=== PATIENT | male | born 1960 | race Caucasian/White ===

== ENCOUNTER → 2016-04-08 | Outpatient (CLI) | payer BC ==
--- NOTE | 2016-04-09 06:34 | PAP/PSG TECHNICIAN REPORT ---
[facility] Tear Down Man Polysomnogram Report Study name: None Report date: 04/09/2016 Study date: 04/08/2016 Referring Physician: DR. VASQUEZ Name: SHILPA HAND Interpreting Physician: Mark Jacobs D.O. Date of : 1960 Tear Down Man: Eileen James RPSGT. Sex: Male Age: 55 Study Type: PSG Weight: 217 lbs 16.5 in Height: 55 years, Height 5' 10" Neck Circum: BMI: 31.13 Medications: LIPITOR Patient History 55 yr-old male here for a baseline/split study. He has a history of loud snoring, witnessed apneas, excessive daytime sleepiness, and restlessness of his legs. His [place] scale is 9. CPAP will be initiated when the AHI is above 10 (per H&P). The test was started on room air. ETCO2 testing was not utilized during this study. Room 3 Parameters Monitored NPSG: E1-M2, E2-M1, Fp1-M2, Fp2-M1, F3-M2, F4-M2, F4-M1, C3-M2, C4-M2, C4-M1, O1-M2, O2-M2, O2-M1, T3-M2, T4-M1, P3-M2, P4-M1, CHIN1, CHIN2, HR, EKG, Legs, PFLOW, SNOR, FLOW, CFLOW, Tidal Volume, THOR, ABDO, SpO2, PLTH, CPRESS, ETCO2 Wave, ETCO2, pH Sleep Architecture Sleep Stages Time at Lights Off 10:43:40 PM STAGES Time (min.) TST (%) Time at Lights On 5:29:40 AM Wake 139.0 -- Total Recording Time (TRT) 406.00 min. N1 85.0 32 Total Sleep Period (TSP) 392.5 min. N2 121.5 46 Total Sleep Time (TST) 267.0min. N3 0.0 0 Awake Time 139.0 min. REM 60.5 23 Wake after Sleep Onset 125.5 min. Sleep Efficiency (SE) 66 % Sleep Onset Latency (GAIL) 13.5 min. Number of Stage 1 Shifts None Awakenings 27 Stage Changes 144 Number of REM periods 5 REM 60.5 23 REM Latency 219.5 min. NREM 206.5 77 Body Position Analysis Supine Right Left Side Prone Vertical Total Sleep Time (min.) 78.2 116.5 111.7 228.21 0.0 0.0 Total Sleep Time (%) 15% 44% 42% 85 0% N/A% Total Sleep Time REM (min.) 0.0 39.0 21.5 None 0.0 0.0 Total Sleep Time NREM (min.) 38.8 77.5 90.2 None 0.0 0.0 Intermittent Wake (min.) 39.4 55.5 44.1 None 0.0 0.0 Total Sleep Period (%) 16% None None None None None Arousals Myoclonus (PLM) * Events Count Index Events Count Index Spontaneous 33 7 Events Awake (PLMW) 108 46.6 Respiratory 73 17.5 Events Asleep w/ Arousal (PLMA) 32 7.2 PLM 32 7 Events Asleep w/o Arousal (PLMS) 112 25.2 Snoring 43 10 Total Asleep 144 32.4 Total 180 40 Total 252 37 Respiratory Analysis * CA OA MA CH H RERA Total Count 6 19 1 0 96 13 122 Index 1.3 4.3 0.2 0 21.6 3 30.3 Mean Duration 13.0 24.3 28.4 0.00 19.5 17.3 19.7 Longest Duration 16.0 50.8 28.4 0.00 28.4 20.2 50.8 Respiratory Event Summary Total Supine ~Supine Right Left Prone REM NREM Apneas Count 26 20 6 5 1 N/A 4 22 Index 5.8 31 2 2.6 0.5 N/A 4 6 Hypopneas (4% Desat) Count 96 33 63 39 24 N/A 19 77 Index 21.6 51.0 17 20.1 12.9 N/A 18.8 22.4 Apneas & All Hypopneas Count 122 53 69 44 25 N/A 23 99 Index 27.4 82 18 23 13 N/A 22.8 28.8 Respiratory Events (Security Alarm Technician+All Hyp+RERA) Count 122 54 81 51 30 N/A 23 99 Index 30.3 84 21 26.3 16.1 N/A 22.8 32.5 Respiratory Related Arousal Count 73 54 37 23 14 N/A 3 75 Index 17.5 63 10 12 8 N/A 3 22 Snoring Analysis Supine Right Left Prone REM NREM Total Snore duration 59.6 min Snores count 93 758 1,088 N/A 486 1,453 1,939 Snore mean duration 1.8 Sec Snores index 144 390 584 N/A 482.0 422.2 435.7 TST with snoring (%) 22.3% Desaturation Event Summary: Minimum %SpO2 Event Count Mean/Min/Max Duration(sec.) Desaturation Index % Time In Bed > 90 179 27.8 / 6.5 / 60.0 34.6 77.1 86 - 90 8 28.1 / 7.0 / 54.0 5.5 21.7 81 - 85 0 N/A 0.0 1.2 76 - 80 0 N/A 0.0 0.0 71 - 75 0 N/A 0.0 0.0 66 - 70 0 N/A 0.0 0.0 61 - 65 0 N/A 0.0 0.0 56 - 60 0 N/A 0.0 0.0 51 - 55 0 N/A 0.0 0.0 < 50 0 N/A 0.0 0.0 Total REM NREM Awake <50% 0.0 min. 0.0 min. 0.0 min. 0.0 min. 51 - 60% 0.0 min. 0.0 min. 0.0 min. 0.0 min. 61 - 70% 0.0 min. 0.0 min. 0.0 min. 0.0 min. 71 - 80% 0.1 min. 0.0 min. 0.0 min. 0.1 min. 81 - 90% 92.2 min. 18.4 min. 60.3 min. 13.4 min. 91 - 100% 310.3 min. 40.3 min. 145.8 min. 124.2 min. Average 92 92 91 93 Minimum SpO2 80 83 82 80 Desaturation Event Index 26.7 39.7 30.5 16.0 # Desat. Events below 89% 53 12 32 9 Time(%) with Saturation below 89% 7.4 1.3 5.5 0.6 Time(min.) with Saturation below 89% 29.6 5.1 22.1 2.4 Time (mins) REM (mins) NREM (mins) % of TST SpO2 Below 90% 108 26 N82 18.1 SpO2 Below 88% 20 0 0 6 Heart Rate Analysis Min (bpm) Max (bpm) Average (bpm) Awake 52 127 65 NREM 52 127 64 REM 55 214 69 Overall 52 214 65 Supplemental O2 Values Minimum O2 level: None Value Start Time End Time Tear Down Man Comments Mr. Hand slept in the right, left, and supine positions. No cardiac arrhythmias were noted. PLMs were noted. No bruxism noted. Snoring was noted and scored as a 3 on a scale of 1 through 5. (0=no snoring, 5=snoring loud enough to be heard through a closed door or down the [address] way). He did not meet specific Split-Night criteria during the diagnostic portion of this study. His AHI was high enough (per the H&P); however, he did not have enough sleep time to allow for CPAP treatment. He did not wake up to use the restroom during the night. Mr. Hand stated that he slept a little worse than usual. The final report will be interpreted and signed by a sleep physician. The completed physician report will then be placed in the patient medical record. Therapy (cm H2O) 0 TIB (min.) 406.0 TST (min.) 267.0 Sleep Onset (min.) 13.5 REM Onset From Sleep (min.) 219.5 Sleep Efficiency % 66 Wakefulness (%) 34 Wakefulness (min.) 139.0 NREM 1 (%) 32 NREM 1 (min.) 85.0 NREM 2 (%) 46 NREM 2 (min.) 121.5 NREM 3 (%) 0 NREM 3 (min.) 0.0 REM (%) 23 REM (min.) 60.5 # Arousals 180 Arousal Index 40 # Snore 1,939 Snore Index 435.7 AHI 27.4 AHI Supine 82 AHI Non-Supine 18 NREM AHI 28.8 REM AHI 22.8 RDI 30.3 # Obstructive Apnea 19 # Central Apnea 6 # Mixed Apnea 1 # Hypopneas 96 RERAs 13 Total Respiratory Events 135 Time Below SpO2 89% (min.) 27.2 Mean NREM SpO2 (%) 91 Mean REM SpO2 (%) 92 Mean Sleep SpO2 (%) 91 Min NREM SpO2 (%) 82 Min REM SpO2 (%) 83 Position Supine (min.) 78.2 Position Non-supine (min.) 228.2 LM Index Sleep 32.4 LM Index NREM 32.0 LM Index REM 33.7 Mean Heart Rate (bpm) 65 Min Heart Rate (bpm) 52
--- NOTE | 2016-04-11 08:29 | POLYSOMNOGRAPH REPORT ---
DATE: 04/08/2016. REFERRING PHYSICIAN: Dr. Perez. CLINICAL DATA: The patient is a 55-year-old male with a BMI of 31.13. He is referred for a sleep study by Dr. Perez. His history is that of snoring, observed apneas, excessive daytime somnolence, and restless legs. His [place] Sleepiness Score is 9 out of a possible 24. This was a diagnostic study. SLEEP ARCHITECTURE: The total sleep period was 392.5 minutes. The total sleep time was 267.0 minutes. Sleep efficiency was moderately reduced to 66%. Wake after sleep onset was increased at 125.5 minutes. The sleep latency was 13.5 minutes. The REM latency was prolonged to 219.5 minutes. Sleep consisted of stage N1 32%, stage N2 46%, stage N3 0%, REM sleep 23%. AROUSAL DATA: The patient had a total of 180 arousals including 33 spontaneous arousals, 73 respiratory arousals, 32 PLM arousals, and 43 snoring arousals. The arousal index was elevated at 40 per hour. PLM DATA: The patient had a total of 144 periodic limb movements of sleep for a PLM index of 32.4 events per hour. There were 32 arousals related to limb movements for an index of 7.2. EKG: The cardiac rhythm was normal sinus. The slowest heart rate was 52 beats per minute. The mean heart rate was 65 beats per minute. RESPIRATORY DATA: The patient showed evidence of moderate sleep apnea with 6 central apneas, 19 obstructive apneas, 1 mixed apneic, and 96 hypopneas. The apnea hypopnea index was moderately elevated at 27.4 events per hour. The longest apnea was 50.8 seconds and the longest hypopnea was 28.4 seconds. There were 13 RERAs. OXIMETRY DATA: The patient had modest hypoxemia. The lowest saturation was 80%. This was very transient. He had a total of 20 minutes with saturations less than 88%. The average saturation was 92%. OUTDOOR ILLUMINATING ENGINEER COMMENTS: Mr. Nolasco slept in the right, left, and supine positions. No cardiac arrhythmias were noted. PLMs were noted. Snoring was noted and scored as a 3 on a scale of 1 through 5. He did not meet specific split night criteria during the diagnostic portion of the study. His AHI was high enough, however he did not have enough sleep time to allow for CPAP treatment. IMPRESSIONS: 1. Obstructive sleep apnea -- moderate. 2. Periodic limb movement disorder. COMMENTS: The patient had moderate sleep apnea as noted. There was modest hypoxemia. The sleep efficiency was decreased. He had a moderate number of limb movements but with relatively few arousals. RECOMMENDATIONS: 1. It is advised that he be given a trial of nasal CPAP or BiPAP. 2. It is suggested that the patient initiate a weight reduction program in light of his elevation of body mass index of 31.13. 3. It is suggested that he avoid sleeping in the supine position. The apnea-hypopnea index during this study when he was supine was elevated at 82.
== END | disposition home or self-care (01) ==
LOC: C.NEUR 21:00
PROVIDERS: ATTEND Internal Medicine Pulmonary Disease
DX: G47.30 Sleep apnea, unspecified (principal)

== ENCOUNTER → 2016-05-22 | Outpatient (CLI) | payer BC ==
--- NOTE | 2016-05-23 05:44 | PAP/PSG TECHNICIAN REPORT ---
[facility] Employee Benefits Specialist Polysomnogram Report Study name: None Report date: 05/23/2016 Study date: 05/22/2016 Referring Physician: Gee Morton Pulmonary Name: YAZAN SHILPA MANISHA Interpreting Physician: Mark Jacobs D.O. Date of : 1960 Employee Benefits Specialist: HELENA Hurst. Sex: Male Age: 55 StudyType: PSG PAP Weight: 217 lbs Height: 55 years, Height 5' 10" Neck Circum:16.5inches BMI: 31.13 Medications: Lipitor Patient History Study started on room air with 4 cwp cpap in room #8. 55 yr old male year tonight for a new titration study. He had a diagnostic psg done here on 04/08/16 that had an AHI of 27.4. His ESS=9/24. Neck circ=16.5inches Parameters Monitored NPSG: E1-M2, E2-M1, Fp1-M2, Fp2-M1, F3-M2, F4-M2, F4-M1, C3-M2, C4-M2, C4-M1, O1-M2, O2-M2, O2-M1, T3-M2, T4-M1, P3-M2, P4-M1, CHIN1, CHIN2, HR, EKG, Legs, PFLOW, SNOR, FLOW, CFLOW, Tidal Volume, THOR, ABDO, SpO2, PLTH, CPRESS, ETCO2 Wave, ETCO2, pH Sleep Architecture Sleep Stages Time at Lights Off 9:53:50 PM STAGES Time (min.) TST (%) Time at Lights On 5:32:50 AM Wake 157.5 -- Total Recording Time (TRT) 459.00 min. N1 26.0 9 Total Sleep Period (TSP) 394.5 min. N2 136.5 45 Total Sleep Time (TST) 301.5min. N3 53.5 18 Awake Time 157.5 min. REM 85.5 28 Wake after Sleep Onset 93.0 min. Sleep Efficiency (SE) 66 % Sleep Onset Latency (GAIL) 64.5 min. Number of Stage 1 Shifts None Awakenings 18 Stage Changes 77 Number of REM periods 5 REM 85.5 28 REM Latency 72.5 min. NREM 216.0 72 Body Position Analysis Supine Right Left Side Prone Vertical Total Sleep Time (min.) 269.1 106.6 48.3 154.85 0.0 0.0 Total Sleep Time (%) 49% 35% 16% 51 0% N/A% Total Sleep Time REM (min.) 42.5 43.0 0.0 None 0.0 0.0 Total Sleep Time NREM (min.) 104.1 63.6 48.3 None 0.0 0.0 Intermittent Wake (min.) 122.5 21.0 14.0 None 0.0 0.0 Total Sleep Period (%) 52% None None None None None Arousals Myoclonus (PLM) * Events Count Index Events Count Index Spontaneous 6 1 Events Awake (PLMW) 113 43.0 Respiratory 21 4.4 Events Asleep w/ Arousal (PLMA) 27 5.4 PLM 27 5 Events Asleep w/o Arousal (PLMS) 70 13.9 Snoring 1 0 Total Asleep 97 19.3 Total 55 11 Total 210 27 Respiratory Analysis * CA OA MA CH H RERA Total Count 3 8 0 0 22 0 33 Index 0.6 1.6 0.0 0 4.4 0 6.6 Mean Duration 18.2 18.3 0.0 0.00 21.7 0.0 20.5 Longest Duration 21.2 23.4 0.0 0.00 0.0 0.0 55.6 Respiratory Event Summary Total Supine ~Supine Right Left Prone REM NREM Apneas Count 11 11 0 0 0 N/A 1 10 Index 2.2 5 0 0.0 0.0 N/A 1 3 Hypopneas (4% Desat) Count 22 19 3 2 1 N/A 0 22 Index 4.4 7.8 1 1.1 1.2 N/A 0.0 6.1 Apneas & All Hypopneas Count 33 30 3 2 1 N/A 1 32 Index 6.6 12 1 1 1 N/A 0.7 8.9 Respiratory Events (Project Management Professor+All Hyp+RERA) Count 33 30 3 2 1 N/A 1 32 Index 6.6 12 1 1.1 1.2 N/A 0.7 8.9 Respiratory Related Arousal Count 21 30 1 0 1 N/A 1 21 Index 4.4 9 0 0 1 N/A 1 6 Snoring Analysis Supine Right Left Prone REM NREM Total Snore duration 1.3 min Snores count 20 5 4 N/A 2 27 29 Snore mean duration 2.6 Sec Snores index 8 3 5 N/A 1.4 7.5 5.8 TST with snoring (%) 0.4% Desaturation Event Summary: Minimum %SpO2 Event Count Mean/Min/Max Duration(sec.) Desaturation Index % Time In Bed > 90 62 25.0 / 7.0 / 58.3 12.9 64.3 86 - 90 25 21.8 / 10.8 / 47.0 9.6 34.9 81 - 85 1 47.0 / 47.0 / 47.0 17.3 0.8 76 - 80 0 N/A 0.0 0.0 71 - 75 0 N/A 0.0 0.0 66 - 70 0 N/A 0.0 0.0 61 - 65 0 N/A 0.0 0.0 56 - 60 0 N/A 0.0 0.0 51 - 55 0 N/A 0.0 0.0 < 50 0 N/A 0.0 0.0 Total REM NREM Awake <50% 0.0 min. 0.0 min. 0.0 min. 0.0 min. 51 - 60% 0.0 min. 0.0 min. 0.0 min. 0.0 min. 61 - 70% 0.0 min. 0.0 min. 0.0 min. 0.0 min. 71 - 80% 0.0 min. 0.0 min. 0.0 min. 0.0 min. 81 - 90% 160.3 min. 26.5 min. 76.6 min. 57.2 min. 91 - 100% 289.3 min. 59.0 min. 137.8 min. 92.5 min. Average 91 91 91 91 Minimum SpO2 78 82 78 80 Desaturation Event Index 8.9 3.5 10.8 9.5 # Desat. Events below 89% 47 5 30 12 Time(%) with Saturation below 89% 9.5 1.8 3.4 4.3 Time(min.) with Saturation below 89% 42.5 8.2 15.1 19.2 Time (mins) REM (mins) NREM (mins) % of TST SpO2 Below 90% 43 5 N38 21.5 SpO2 Below 88% 12 0 0 2 Heart Rate Analysis Min (bpm) Max (bpm) Average (bpm) Awake 46 127 63 NREM 49 127 59 REM 55 77 65 Overall 49 127 61 Supplemental O2 Values Minimum O2 level: None Value Start Time End Time Employee Benefits Specialist Comments Mr. Nolasco slept in the right, left, supine and prone positions. No cardiac arrhythmia or PLM's noted. No bruxism noted. CPAP was initiated at +4 CMH2O and up-titrated to an optimal level of +8 CMH2O, which nearly eliminated all respiratory events and snoring. A Soft Edge Mirage FX nasal mask was used for the first part of the study and then switched to a medium Quattro Air full face mask (both by [employer] ) were used during titration. He awoke to use the restroom 1 time during the night. He stated that he slept better than last time. The final report will be interpreted and signed by a sleep physician. The completed physician report will then be placed in the patient medical record. Therapy Event: Therapy (cm H20) 4 6 7 8 Total Time at Pressure (min.) 128.7 28.2 75.0 227.1 TST at Pressure (min.) 53.2 25.7 72.0 150.6 # Periods 1 1 1 1 Sleep Onset (min.) 64.5 0.0 0.0 0.0 REM Onset (min.) N/A 8.3 67.6 2.1 Sleep Efficiency % 41 91 96 66 Wakefulness (%) 58.7 8.9 4.0 33.7 Wakefulness (min.) 75.5 2.5 3.0 76.5 NREM 1 (%) 3.9 19.5 7.2 4.5 NREM 1 (min.) 5.0 5.5 5.4 10.1 NREM 2 (%) 25.0 13.1 34.8 32.8 NREM 2 (min.) 32.2 3.7 26.1 74.5 NREM 3 (%) 12.4 0.0 50.0 0.0 NREM 3 (min.) 16.0 0.0 37.5 0.0 REM (%) 0.0 58.5 4.0 29.1 REM (min.) 0.0 16.5 3.0 66.0 # Arousals 18 14 14 9 Arousal Index 20.3 32.7 11.7 3.6 # Snore 7 3 9 10 Snore Index 7.9 7.0 7.5 4.0 AHI 5.6 28.0 6.7 3.2 AHI Supine 48.9 28.0 6.7 8.2 AHI Non-Supine 1.2 N/A N/A 1.1 NREM AHI 5.6 78.2 6.1 5.7 REM AHI N/A 0.0 20.0 0.0 RDI 5.6 28.0 6.7 3.2 # Obstructive 0 7 1 0 # Central Ap 0 0 0 3 # Mixed 0 0 0 0 # Hypopneas 5 5 7 5 RERAS 0 0 0 0 Total Respiratory Events 5 12 8 8 Time Below SpO2 89.00% (min.) 0.8 10.4 10.8 1.3 Mean NREM SpO2 (%) 92 91 89 92 Mean REM SpO2 (%) N/A 89 89 92 Mean Sleep SpO2 (%) 92 89 89 92 Min NREM SpO2 (%) 78 84 87 86 Min REM SpO2 (%) N/A 85 82 89 Position Supine (min.) 4.9 25.7 72.0 44.0 Position Non-supine (min.) 48.3 0.0 0.0 106.6 LM Index Sleep 46.3 56.0 17.5 4.4 LM Index NREM 46.3 104.3 17.4 6.4 LM Index REM N/A 29.1 20.0 1.8 Mean Heart Rate (bpm) 59 66 62 60 Min Heart Rate (bpm) 52 53 53 49
--- NOTE | 2016-05-24 13:25 | POLYSOMNOGRAPH REPORT ---
REFERRING PHYSICIAN: Dr. Gee Morton. PRIMARY CARE DOCTOR: Dr. Harjinder Perez. CLINICAL DATA: The patient is a 55-year-old male who has a BMI of 31.13. He is referred by Dr. Perez. Mr. Nolasco had a first night sleep study done on 04/09/2016. His complaints were snoring, observed apneas, and excessive daytime somnolence. His [place] score was 9 out of a possible 24. The apnea hypopnea index from the first night study was moderately elevated at 27.4 events per hour with oxygen saturations as low as 80%. He is referred back to the sleep disorder center for a CPAP titration study. SLEEP ARCHITECTURE: The total sleep period was 394.5 minutes. Total sleep time was 301.5 minutes. The sleep efficiency was moderately reduced to 66%. The sleep onset latency was prolonged to 64.5 minutes. Wake after sleep onset was also prolonged to 93 minutes. The REM latency was normal at 72.5 minutes. Sleep consisted of stage N1 9%, stage N2 45%, stage N3 18%, and REM sleep 28%. AROUSAL DATA: The patient had a total of 55 arousals including 6 spontaneous arousals, 21 respiratory arousals, 27 PLM arousals, and 1 snoring arousal. The arousal index was 11. PLM DATA: The patient had a total of 97 periodic limb movements of sleep for an index of 19.3. Twenty seven of these resulted in arousals for a PLM arousal index of 5.4. EKG: The underlying cardiac rhythm was normal sinus. The minimum heart rate was 49 and the maximum recorded was 127. This appeared to be artifact; however. He had very little cardiac rates above 80. RESPIRATORY DATA: The patient's respiratory events were treated with nasal CPAP, which was titrated up to a final pressure of 8 cm. He had a total of 33 respiratory events including 3 central apneas, 8 obstructive apneas, and 22 hypopneas. The 4% rule was utilized in scoring hypopneas. The longest apnea was 23.4 seconds. The apnea-hypopnea index was 6.6. At the final pressure of 8 cm, the apnea-hypopnea index was only 3.2 events per hour. OXIMETRY DATA: The average saturation was 91%. The minimum saturation was 78%. He had a total of 12 minutes with saturations less than 88%. WELDER TOOL AND DIE COMMENTS AND SUMMARY: Mr. Nolasco slept in the right, left, supine, and prone positions. No cardiac arrhythmias were noted. CPAP was initiated at 4 cm and up-titrated to an optimal level of 8 cm. This nearly eliminated all respiratory events and snoring. He initially was tried with a nasal mask and was subsequently switched to a medium Quattro Air full face mask made by [employer]. IMPRESSION: 1. Obstructive sleep apnea -- markedly improved with nasal CPAP at 8 cm. 2. Periodic limb movement disorder. COMMENTS: Nasal CPAP was utilized and this significantly improved his sleep apnea. His oxygenation was improved compared with the first night. His sleep efficiency was moderately decreased. This was in part related to a very prolonged sleep onset. He persisted with transient hypoxia. RECOMMENDATIONS: 1. It is advised that the patient be initiated on nasal CPAP at 8 cm. 2. It is suggested that he be started on a [employer] Quattro full facemask size medium. 3. A weight reduction program is advised in light of the patient's elevation of body mass index at 31.13. 4. The patient should be advised if possible to avoid sleeping in the supine position. 5. Followup is needed between day 31 and day 90 after being initiated on CPAP therapy. MTDD
== END | disposition home or self-care (01) ==
LOC: C.NEUR 21:00
PROVIDERS: ATTEND Internal Medicine Pulmonary Disease
DX: G47.30 Sleep apnea, unspecified (principal)

== ENCOUNTER → 2016-06-11 | Outpatient (CLI) | payer BC ==
[~2016-06-11] VITALS: Ht 704.3 cm; Wt 98.6 kg
[2016-06-11 15:48] VITALS: BP 129/66; PULSE 68; Ht 704.3 cm; Wt 98.6 kg
== END | disposition home or self-care (01) ==
LOC: C.NEUR 15:34
PROVIDERS: ATTEND Physician Assistant Medical
DX: G47.33 Obstructive sleep apnea (adult) (pediatric) (principal); G47.61 Periodic limb movement disorder; E78.00 Pure hypercholesterolemia, unspecified

== ENCOUNTER → 2016-09-10 | Outpatient (CLI) | payer BC ==
[~2016-09-10] VITALS: Ht 175.3 cm; Wt 99.6 kg
[2016-09-10 13:15] VITALS: BP 141/65; PULSE 63; Ht 175.3 cm; Wt 99.6 kg
== END | disposition home or self-care (01) ==
LOC: C.NEUR 12:15
PROVIDERS: ATTEND Physician Assistant Medical
DX: G47.33 Obstructive sleep apnea (adult) (pediatric) (principal); G47.61 Periodic limb movement disorder

== ENCOUNTER → 2017-03-11 | Outpatient (CLI) | payer BC ==
[~2017-03-11] VITALS: Ht 175.3 cm; Wt 99.4 kg
[2017-03-11 13:52] VITALS: BP 134/91; PULSE 65; Ht 175.3 cm; Wt 99.4 kg
== END | disposition home or self-care (01) ==
LOC: C.NEUR 12:15
PROVIDERS: ATTEND Internal Medicine Pulmonary Disease
DX: G47.33 Obstructive sleep apnea (adult) (pediatric) (principal); G47.61 Periodic limb movement disorder; E78.00 Pure hypercholesterolemia, unspecified

== ENCOUNTER 2017-07-15 07:22 | Emergency (ER) | payer BC ==
[~2017-07-15] VITALS: Ht 177.8 cm; Wt 99.4 kg
[2017-07-15 07:24] VITALS: TEMP 36.4; Ht 177.8 cm; Wt 99.4 kg
[2017-07-15] MEDS ORDERED: KETOROLAC TROMETHAMINE 30 MG/ML VIAL IV STA (07:29)
[2017-07-15] MEDS ORDERED: HYDROmorphone INJ 1 MG/ML SYR IV STA (07:29)
[2017-07-15] MEDS ORDERED: ONDANSETRON INJ 2 MG/ML 2 ML VIAL IV STA (07:29)
[2017-07-15] MEDS ORDERED: SODIUM CHLORIDE 0.9% 1000ML 1,000 ML IV STA (07:29)
--- NOTE | 2017-07-15 07:40 | EMERGENCY ROOM VISIT NOTE ---
History Report prepared by Dorothy: Juventino Urrutia Under the Supervision of: Dr. Juni Saez M.D. First contact with patient: 07:26 Chief Complaint: FLANK PAIN Stated Complaint: LLQ PAIN History of Present Illness The patient is a 57 year old male who presents to the Emergency Room with complaints of constant pain in the left flank that began at 0400 this morning, 3.5 hours ago when it woke him from sleep. The patient states that since onset, the pain has began to move/radiate towards his left lower abdominal quadrant and into the left testicle. He has never had a stone before. There have not been any urinary irregularities. Source of History: patient Onset: 3.5 hours ago Position: back (Left flank) Timing: constant Associated Symptoms: + abdominal pain, No urinary symptoms Review of Systems See HPI for pertinent positives & negatives. A total of 10 systems reviewed and were otherwise negative. Past Medical & Surgical Hx of Hyperlipidemia Family History Hyperlipidemia Social History Smoking Status: Never Smoker Marital Status: Housing Status: lives with family Occupation Status: employed Current/Historical Medications Scheduled Atorvastatin (Lipitor), 20 MG PO HS Tamsulosin Hcl (Flomax), 0.4 MG PO DAILY Scheduled PRN Hydrocodone/Acetaminophen 5MG/325MG ([place] 5MG/325MG), 2 TABLET PO Q6 PRN for Pain Ibuprofen Tab (Advil), 200-600 MG PO Q4H PRN for Pain Allergies Coded Allergies: Amoxicillin (Unverified Allergy, Mild, hives, 07/15/17) Uncoded Allergies: AMOXICILLIN (Allergy, Unknown, 04/15/02) Physical Exam Vital Signs Date Time Temp Pulse Resp B/P (MAP) Pulse Ox O2 Delivery O2 Flow Rate FiO2 07/15/17 08:57 50 16 115/64 94 07/15/17 07:24 36.4 60 20 163/95 98 Room Air Physical Exam GENERAL: Awake, alert, well-appearing, in no acute distress HENT: Normocephalic, atraumatic. Oropharynx unremarkable. EYES: Normal conjunctiva. Sclera non-icteric. NECK: Supple. No nuchal rigidity. FROM. No JVD. RESPIRATORY: Clear to auscultation. CARDIAC: Regular rate, normal rhythm. Extremities warm and well perfused. Pulses equal. ABDOMEN: Soft, non-distended. No tenderness to palpation. No rebound or guarding. No masses. RECTAL: Deferred. MUSCULOSKELETAL: Chest examination reveals no tenderness. The back is symmetrical on inspection without obvious abnormality. There is no CVA tenderness to palpation. No joint edema. LOWER EXTREMITIES: Calves are equal size bilaterally and non-tender. No edema. No discoloration. NEURO: Normal sensorium. No sensory or motor deficits noted. SKIN: No rash or jaundice noted. Medical Decision & Procedures ER Provider Diagnostic Interpretation: Radiology results as stated below per my review and radiologist interpretation: ABDOMEN AND PELVIS CT WITHOUT CONTRAST CT DOSE: 1516.35 mGy.cm HISTORY: Left lower quadrant abdominal pain. TECHNIQUE: Multiaxial CT images of the abdomen and pelvis were performed without the use of intravenous and oral contrast according to the standard department stone protocol. A dose lowering technique was utilized adhering to the principles of ALARA. COMPARISON STUDY: None. FINDINGS: Mild dependent changes seen at the lung bases. No pneumoperitoneum. No pneumatosis. No fractures within the visualized osseous structures. Tiny fat-containing bilateral inguinal hernias. 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 The unenhanced liver, spleen, adrenal glands, pancreas, and gallbladder are unremarkable. No retroperitoneal lymphadenopathy. Focal scarring within the upper pole of the right kidney. There is a punctate stone within the lower pole the right kidney. No right-sided hydronephrosis. Bladder is not well-distended but appears unremarkable. 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 Multiple punctate stones within the left kidney. There is mild hydronephrosis within the upper pole moiety due to an obstructing 4 mm stone within the mid left ureter on image 95. The duplicated left ureters are difficult to follow but likely join immediately proximal to the left ureterovesical junction. Colonic diverticulosis. No definite bowel wall thickening or obstruction. Normal appendix. IMPRESSION: 1. 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 The duplicated left ureters are difficult to follow but appear to join immediately proximal to the left ureterovesical junction. There is a 4 mm stone within the mid ureter of the upper pole moiety resulting in mild hydronephrosis. 2. Bilateral nephrolithiasis. 3. Colonic diverticulosis. 4. No bowel wall thickening or obstruction. 5. Normal appendix. 6. 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 7. Additional findings as described above. Electronically signed by: Preston Cisse M.D. 07/15/2017 8:15 AM Dictated Date/Time: 07/15/2017 8:06 AM Laboratory Results 07/15/17 07:34 Red Blood Count 4.92, Mean Corpuscular Volume 87.6, Mean Corpuscular Hemoglobin 32.1, Mean Corpuscular Hemoglobin Concent 36.7, Mean Platelet Volume 9.9, Neutrophils (%) (Auto) 57.0, Lymphocytes (%) (Auto) 31.9, Monocytes (%) (Auto) 6.7, Eosinophils (%) (Auto) 3.3, Basophils (%) (Auto) 0.9, Neutrophils # (Auto) 2.55, Lymphocytes # (Auto) 1.43, Monocytes # (Auto) 0.30, Eosinophils # (Auto) 0.15, Basophils # (Auto) 0.04 07/15/17 07:34 Test 07/15/17 07:30 07/15/17 07:34 Urine Color YELLOW Urine Appearance CLEAR (CLEAR) Urine pH 5.0 (4.5-7.5) Urine Specific [place] 1.025 (1.000-1.030) Urine Protein NEG (NEG) Urine Glucose (UA) NEG (NEG) Urine Ketones NEG (NEG) Urine Occult Blood 3+ (NEG) Urine Nitrite NEG (NEG) Urine Bilirubin NEG (NEG) Urine Urobilinogen NEG (NEG) Urine Leukocyte Esterase NEG (NEG) Urine WBC (Auto) 1-5 /hpf (0-5) Urine RBC (Auto) >30 /hpf (0-4) Urine Hyaline Casts (Auto) 0 /lpf (0-5) Urine Epithelial Cells (Auto) 0-5 /lpf (0-5) Urine Bacteria (Auto) NEG (NEG) White Blood Count 4.48 K/uL (4.8-10.8) Red Blood Count 4.92 M/uL (4.7-6.1) Hemoglobin 15.8 g/dL (14.0-18.0) Hematocrit 43.1 % (42-52) Mean Corpuscular Volume 87.6 fL (80-100) Mean Corpuscular Hemoglobin 32.1 pg (25-34) Mean Corpuscular Hemoglobin Concent 36.7 g/dl (32-36) Platelet Count 271 K/uL (130-400) Mean Platelet Volume 9.9 fL (7.4-10.4) Neutrophils (%) (Auto) 57.0 % Lymphocytes (%) (Auto) 31.9 % Monocytes (%) (Auto) 6.7 % Eosinophils (%) (Auto) 3.3 % Basophils (%) (Auto) 0.9 % Neutrophils # (Auto) 2.55 K/uL (1.4-6.5) Lymphocytes # (Auto) 1.43 K/uL (1.2-3.4) Monocytes # (Auto) 0.30 K/uL (0.11-0.59) Eosinophils # (Auto) 0.15 K/uL (0-0.5) Basophils # (Auto) 0.04 K/uL (0-0.2) RDW Standard Deviation 40.5 fL (36.4-46.3) RDW Coefficient of Variation 12.6 % (11.5-14.5) Immature Granulocyte % (Auto) 0.2 % Immature Granulocyte # (Auto) 0.01 K/uL (0.00-0.02) Anion Gap 6.0 mmol/L (3-11) Est Creatinine Clear Calc Drug Dose 75.5 ml/min Estimated GFR () 72.4 Estimated GFR (Non- 62.5 BUN/Creatinine Ratio 13.5 (10-20) Calcium Level 9.1 mg/dl (8.5-10.1) Total Bilirubin 0.8 mg/dl (0.2-1) Direct Bilirubin 0.2 mg/dl (0-0.2) Aspartate Amino Transf (AST/SGOT) 28 U/L (15-37) Alanine Aminotransferase (ALT/SGPT) 50 U/L (12-78) Alkaline Phosphatase 54 U/L (45-117) Total Protein 7.8 gm/dl (6.4-8.2) Albumin 4.4 gm/dl (3.4-5.0) Lipase 129 U/L (73-393) Labs reviewed by ED physician. Medications Administered Medications (Trade) Dose Ordered Sig/Zainab Route Start Time Stop Time Status Last Admin Dose Admin Sodium Chloride 1,000 ml @ 999 mls/hr Q1H1M STAT IV 07/15/17 07:29 07/15/17 08:29 DC 07/15/17 07:51 999 MLS/HR Ketorolac Tromethamine (Toradol Inj) 30 mg NOW STAT IV 07/15/17 07:29 07/15/17 07:31 DC 07/15/17 07:51 30 MG Hydromorphone HCl (Dilaudid Inj) 1 mg NOW STAT IV 07/15/17 07:29 07/15/17 07:31 DC 07/15/17 07:52 1 MG Ondansetron HCl (Zofran Inj) 4 mg NOW STAT IV 07/15/17 07:29 07/15/17 07:31 DC 07/15/17 07:50 4 MG Tamsulosin HCl (Flomax Cap) 0.4 mg NOW STAT PO 07/15/17 08:31 07/15/17 08:32 DC 07/15/17 08:44 0.4 MG ED Course 0726: Past medical records reviewed. The patient was evaluated in room B3B. A complete history and physical examination was performed. 0729: Ordered Zofran 4 mg IV, Dilaudid 1 mg IV, Toradol 30 mg IV, Sodium Chloride 1000 mL @ 999 mL/hr IV. 0831: Ordered Flomax 0.4 mg PO. 0839: Upon reexamination the patient is resting in bed. I discussed results and treatment plan with the patient. He verbalizes agreement and understanding. The patient is ready for discharge. Medical Decision Differential diagnosis: Etiologies such as renal colic, appendicitis, diverticulitis, mesenteric ischemia, aortic pathology, infections, inflammatory bowel disease, PUD, biliary pathology, UTI, as well as others were entertained. This is a 57-year-old male who presents emergency department complaining of left lower quadrant abdominal pain. The patient appears to have A 4 mm stone. Serial abdominal examinations were performed on the patient in the emergency department and at no time to the patient exhibited surgical abdomen. in the emergency department the patient received IV Toradol as well as Dilaudid. Repeat examination revealed improvement the patient's symptoms. I do feel that the patient is well enough to be discharged home as he is afebrile does not have an elevation in his white blood cell count. Medication Reconcilliation Current Medication List: was personally reviewed by me Blood Pressure Screening Patient's blood pressure: Elevated blood pressure Impression Primary Impression: Kidney stone Additional Impression: Left flank pain Scribe Attestation The scribe's documentation has been prepared under my direction and personally reviewed by me in its entirety. I confirm that the note above accurately reflects all work, treatment, procedures, and medical decision making performed by me. Departure Information Dispostion Home / Self-Care Prescriptions Tamsulosin Hcl (FLOMAX) 0.4 Mg Cap 0.4 MG PO DAILY for 10 Days, #10 CAP Prov: Juni Saez MD 07/15/17 Hydrocodone/Acetaminophen 5MG/325MG ([place] 5MG/325MG) Tab 2 TABLET PO Q6 Y for Pain, #14 TAB Prov: Juni Saez MD 07/15/17 Referrals Harjinder Modi M.D. (PCP) Forms HOME CARE DOCUMENTATION FORM, IMPORTANT VISIT INFORMATION Patient Instructions My [facility] Additional Instructions Need to return if you develop fevers Follow up with Dr Hillman's office You received narcotic or benzodiazepene medication while in the emergency room today. This is an addictive medication that may cause drowziness as well as constipation. Do not drive, operate heavy machinery, or drink alcohol under the influence of this medication. Take 600 mg Ibuprofen every 6 hours Take [place] for breakthrough pain You have been examined and treated today on an emergency basis only. This is not a substitute for, or an effort to provide, complete comprehensive medical care. It is impossible to recognize and treat all injuries or illnesses in a single emergency department visit. It is therefore important that you follow up closely with Dr Cassie Garcia. Call as soon as possible for an appointment. Thank you for your time and consideration. I look forward to speaking with you again soon. Please don't hesitate to call us if you have any questions. Problem Qualifiers
[2017-07-15] MEDS ORDERED: IBUP-103 PO (07:52)
[2017-07-15] MEDS ORDERED: ATOR-22 PO (07:52)
[2017-07-15 07:56] LABS: BASO % 0.9 %; BASO ABS # 0.04 K/uL (0-0.2); EOS % 3.3 %; EOS ABS # 0.15 K/uL (0-0.5); HEMATOCRIT 43.1 % (42-52); HEMOGLOBIN 15.8 g/dL (14.0-18.0); IG# 0.01 K/uL (0.00-0.02); LYMPH % 31.9 %; LYMPH ABS # 1.43 K/uL (1.2-3.4); MEAN CELL VOLUME 87.6 fL (80-100); MEAN CORPUSCULAR HEMOGLOBIN 32.1 pg (25-34); MEAN CORPUSCULAR HGB CONC 36.7 g/dl (32-36); MEAN PLATELET VOLUME 9.9 fL (7.4-10.4); MONO % 6.7 %; NEUT ABS # 2.55 K/uL (1.4-6.5); PLATELET COUNT 271 K/uL (130-400); RED CELL DISTRIBUTION WIDTH CV 12.6 % (11.5-14.5); RED CELL DISTRIBUTION WIDTH SD 40.5 fL (36.4-46.3); WHITE BLOOD COUNT 4.48 K/uL (4.8-10.8)
[2017-07-15 08:16] LABS: ALBUMIN 4.4 gm/dl (3.4-5.0); CALCIUM 9.1 mg/dl (8.5-10.1); CREATININE 1.26 mg/dl (0.60-1.40); POTASSIUM 4.2 mmol/L (3.5-5.1)
--- NOTE | 2017-07-15 08:16 | DIAGNOSTIC IMAGING REPORT ---
ABDOMEN AND PELVIS CT WITHOUT CONTRAST CT DOSE: 1516.35 mGy.cm HISTORY: Left lower quadrant abdominal pain. TECHNIQUE: Multiaxial CT images of the abdomen and pelvis were performed without the use of intravenous and oral contrast according to the standard department stone protocol. A dose lowering technique was utilized adhering to the principles of ALARA. COMPARISON STUDY: None. FINDINGS: Mild dependent changes seen at the lung bases. No pneumoperitoneum. No pneumatosis. No fractures within the visualized osseous structures. Tiny fat-containing bilateral inguinal hernias. 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 The unenhanced liver, spleen, adrenal glands, pancreas, and gallbladder are unremarkable. No retroperitoneal lymphadenopathy. Focal scarring within the upper pole of the right kidney. There is a punctate stone within the lower pole the right kidney. No right-sided hydronephrosis. Bladder is not well-distended but appears unremarkable. 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 Multiple punctate stones within the left kidney. There is mild hydronephrosis within the upper pole moiety due to an obstructing 4 mm stone within the mid left ureter on image 95. The duplicated left ureters are difficult to follow but likely join immediately proximal to the left ureterovesical junction. Colonic diverticulosis. No definite bowel wall thickening or obstruction. Normal appendix. IMPRESSION: 1. 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 The duplicated left ureters are difficult to follow but appear to join immediately proximal to the left ureterovesical junction. There is a 4 mm stone within the mid ureter of the upper pole moiety resulting in mild hydronephrosis. 2. Bilateral nephrolithiasis. 3. Colonic diverticulosis. 4. No bowel wall thickening or obstruction. 5. Normal appendix. 6. 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 7. Additional findings as described above. Electronically signed by: Preston Cisse M.D. 07/15/2017 8:15 AM Dictated Date/Time: 07/15/2017 8:06 AM
[2017-07-15 08:19] LABS: TOTAL PROTEIN 7.8 gm/dl (6.4-8.2)
[2017-07-15] MEDS ORDERED: TAMSULOSIN HCL 0.4 MG CAP PO STA (08:31)
[2017-07-15] MEDS ORDERED: HYDR-5688 PO (08:33)
[2017-07-15] MEDS ORDERED: TAMS0.4C38 PO (08:36)
[2017-07-15 08:57] VITALS: BP 115/64; PULSE 50; O2SAT 94
== END 2017-07-15 09:05 | disposition home or self-care (01) ==
LOC: C.EDB 07:22
DX: N13.2 Hydronephrosis with renal and ureteral calculous obstruction (principal); E78.5 Hyperlipidemia, unspecified; Z79.899 Other long term (current) drug therapy; Z88.0 Allergy status to penicillin

== ENCOUNTER → 2017-10-06 | Outpatient (CLI) | payer BC ==
[~2017-10-06] MED LIST: ATOR-22 PO; HYDR-5688 PO; IBUP-103 PO
--- NOTE | 2017-10-06 11:10 | DIAGNOSTIC IMAGING REPORT ---
RENAL ULTRASOUND HISTORY: N20.1 Ureteric [id number] COMPARISON: [facility] 08/19/2017. Renal ultrasound 07/29/2017. FINDINGS: Right kidney: 10.3 cm. No hydronephrosis. Normal corticomedullary differentiation and cortical thickness. Left kidney: 8.8 cm. No hydronephrosis. Normal corticomedullary differentiation and cortical thickness. Bladder: No bladder wall thickening. The bilateral ureteral jets were identified. IMPRESSION: No hydronephrosis. Electronically signed by: Preston Cisse M.D. 10/06/2017 11:09 AM Dictated Date/Time: 10/06/2017 11:08 AM
== END | disposition home or self-care (01) ==
LOC: C.ULTR 10:19
PROVIDERS: ATTEND Urology
DX: N20.1 Calculus of ureter (principal)